=== PATIENT | female | born 1950 | race Two or more races ===

== ENCOUNTER 2019-12-21 08:02 | Outpatient (CLI) | payer OTHER | END 2019-12-21 08:17 | disposition home or self-care (01) | LOC: SONOGRAMA 08:02 | DX: E04.1 Nontoxic single thyroid nodule (principal) ==

== ENCOUNTER 2023-04-01 08:48 | Outpatient (CLI) | payer OTHER | END 2023-04-01 08:55 | disposition home or self-care (01) | LOC: SONOGRAMA 08:48 | PROVIDERS: ATTEND Pathology Anatomic Pathology & Clinical Pathology | DX: D34 Benign neoplasm of thyroid gland (principal); E04.9 Nontoxic goiter, unspecified ==

== ENCOUNTER 2023-04-03 09:41 | Outpatient (CLI) | payer OTHER | END 2023-04-03 09:43 | disposition home or self-care (01) | LOC: RX STUDY 09:41 | PROVIDERS: ATTEND Specialist | DX: R10.13 Epigastric pain (principal) ==

== ENCOUNTER 2023-04-16 15:57 | Outpatient (CLI) | payer OTHER | END 2023-04-16 15:59 | disposition home or self-care (01) | LOC: LAB 15:57 | DX: E21.3 Hyperparathyroidism, unspecified (principal); Z91.128 Patient's intentional underdosing of medication regimen for other reason; R06.02 Shortness of breath ==

== ENCOUNTER 2023-04-18 07:41 | Outpatient (CLI) | payer OTHER | END 2023-04-18 07:46 | disposition home or self-care (01) | LOC: TOM 07:41 | DX: E21.3 Hyperparathyroidism, unspecified (principal) | CPT/HCPCS: 70491; 71260; Q9965 ==

== ENCOUNTER 2023-06-05 05:08 | Day surgery (SDC) | payer OTHER ==
[~2023-06-05] VITALS: Ht 149.9 cm; Wt 61.2 kg
[~2023-06-05 05:08] MED LIST: LIPITOR20 MG PO; METFORMIN HCL500 M3 PO; PEPCID AC10 MG PO; PROTONIX40 MG PO; ZESTRIL20 MG PO
[2023-06-05] MEDS ORDERED: TRAMADOL HCL50 MG PO (09:02)
== END 2023-06-05 11:30 | disposition home or self-care (01) ==
LOC: CIR.AMB 05:08
PROVIDERS: ATTEND Surgery
DX: D35.1 Benign neoplasm of parathyroid gland (principal); E21.0 Primary hyperparathyroidism; Z20.822 Contact with and (suspected) exposure to COVID-19; Z88.0 Allergy status to penicillin; Z88.2 Allergy status to sulfonamides; Z88.1 Allergy status to other antibiotic agents